=== PATIENT | female | born 1960 | race Caucasian/White ===

== ENCOUNTER → 2018-11-09 | Outpatient (CLI) | payer BC ==
[~2018-11-09] MED LIST: BARIUM SUSPENSION 2.1% (VANILLA SILQ) 450 ML PO ONE; CATHETER FLUSH 10 ML SYR IV PRN; IOHEXOL 350 MG/ML 100 ML (OMNIPAQUE 350) VIAL IV ONE; NS 100 ML (IVPB) BAG IV ONE; RECEIVED CONTRAST 20 ML VIAL IV SCH
[2018-11-09 16:17] LABS: BUN/CREATININE RATIO 20; CREATININE SERUM 0.85 MG/DL (0.60-1.30); GFR ESTIMATED > 60
--- NOTE | 2018-11-09 17:00 | Diagnostic Imaging Report ---
PROCEDURE: CT abdomen and pelvis with contrast. TECHNIQUE: Multiple contiguous axial images were obtained through the abdomen and pelvis after administration of intravenous contrast. INDICATION: Lower abdominal pain. COMPARISON: No prior studies are available for comparison. FINDINGS: Lung bases are clear. Liver and gallbladder are unremarkable. No biliary duct dilatation is seen. The pancreas and spleen are unremarkable. There is some mild enlargement to the adrenal glands bilaterally which may be secondary to adrenal hyperplasia. No discrete adrenal mass is identified. Kidneys are unremarkable. Aorta is non-aneurysmal. Small and large bowel loops are normal in caliber. Appendix is visualized and unremarkable. There is no ascites. No central retroperitoneal or mesenteric lymphadenopathy is seen. No definite inguinal or iliac lymphadenopathy is seen. The uterus and bladder are unremarkable. There is moderate stool throughout the colon, perhaps on the basis of constipation. IMPRESSION: Moderate stool in the colon. Study is otherwise unremarkable. No acute feature is detected. Dictated by: Dictated on workstation # [id number]
== END ==
LOC: RAD 15:41
PROVIDERS: ATTEND Emergency Medicine
DX: F22 Delusional disorders (principal); R10.30 Lower abdominal pain, unspecified
CPT/HCPCS: 36415; 74177; 82565; 84520

== ENCOUNTER 2019-11-15 16:50 | Emergency (ER) | payer BC ==
[~2019-11-15] VITALS: Ht 168 cm; Wt 82.8 kg
[2019-11-15 16:50] VITALS: BP 154/77
[2019-11-15] MEDS ORDERED: HYDR-3781 (17:06)
[2019-11-15] MEDS ORDERED: TOPI100T11 (17:06)
[2019-11-15] MEDS ORDERED: DEXT30TA12 (17:06)
[2019-11-15] MEDS ORDERED: LISI-552 (17:06)
[2019-11-15] MEDS ORDERED: ATOR20TA66 (17:06)
--- NOTE | 2019-11-15 17:09 | ED EENT ---
History of Present Illness General Chief Complaint: Ear Problems Stated Complaint: POSS EAR INFECTION Nursing Triage Note: COMPLAINS OF LEFT SIDED EAR PAIN ET STATES SOMETHING CAME OUT OF IT 4 DAYS AGO. ALSO COMPLAINS OF DIZZINESS. Source: patient Exam Limitations: no limitations History of Present Illness Date Seen by Provider: Nov 15, 2019 Time Seen by Provider: 17:00 Initial Comments The patient is a 59-year-old female who presents for evaluation of ear pain and sinus pressure over the last 4 days or so. She also states that something came out of her ear a few days ago and she brings it in a plastic bag. It appears to be a small string tied and are not with some yellow earwax attached. She admits to some intermittent dizziness as well. She is alert and oriented 4, calm, and appears to be in no distress at this time. She denies headache, neck pain or stiffness, chest pain or shortness of breath, abdominal or back pain, fevers or chills, nausea or vomiting, palpitations or syncope Timing/Duration: gradual Severity: mild Location: ear (R), ear (L) Prearrival Treatment: no prearrival treatment Associated Symptoms: sinus infection Allergies and Home Medications Allergies Coded Allergies: No Allergy Information Available (Unverified , 11/09/18) Patient Home Medication List Home Medication List Reviewed: Yes Review of Systems Review of Systems Constitutional: no symptoms reported Eyes: No Symptoms Reported Ears: Pain (mild bilateral ear pain, small foreign body from right ear) Nose: no symptoms reported, other (mild sinus pressure) Mouth: no symptoms reported Throat: no symptoms reported Respiratory: no symptoms reported Cardiovascular: no symptoms reported Gastrointestinal: no symptoms reported Musculoskeletal: no symptoms reported Skin: no symptoms reported Neurological: No Symptoms Reported Hematologic/Lymphatic: No Symptoms Reported Immunological/Allergic: no symptoms reported All Other Systems Reviewed Negative Unless Noted: Yes Past Cmndosk-Jotdew-Bwvfbd Hx Past Med/Social Hx: Reviewed Nursing Past Med/Soc Hx Patient Social History Recent Foreign Travel: No Contact w/Someone Who Travel: No Recent Infectious Disease Expo: No Physical Exam Vital Signs Vital Signs - First Documented 11/15/19 16:50 Temp 36.6 Height, Weight, BMI Height: '" Weight: lbs. oz. kg; 29.00 BMI Method: General Appearance: WD/WN Eyes: bilateral eye normal inspection, bilateral eye PERRL, bilateral eye EOMI Ears: bilateral ear auricle normal, bilateral ear canal normal, bilateral ear TM normal Nose: normal inspection Mouth/Throat: normal mouth inspection, pharynx normal, other (+maxillary sinus ttp) Neck: non-tender, full range of motion, supple, normal inspection Cardiovascular: regular rate, rhythm, no edema, no murmur Respiratory: chest non-tender, lungs clear, normal breath sounds, no respirator y distress Gastrointestinal: normal bowel sounds, non tender, soft Neurologic/Psychiatric: no motor/sensory deficits, alert, normal mood/affect, oriented x 3 Skin: normal color, warm/dry Progress/Results/Core Measures Results/Orders Vital Signs/I&O 11/15/19 16:50 Temp 36.6 B/P (MAP) Progress Progress Note : Progress Note @1710 - patient offered antibiotics for possible sinus infection and she would like to try them. Additionally she'll be given a prescription for meclizine for the intermittent dizziness. Advised the patient to follow up with her PCP in the next 1-2 days and to return to the emergency Department immediately for new or worsening symptoms. The patient expresses verbal understanding and agreement with the plan and is stable for discharge at this time. Departure Impression Primary Impression: Acute sinusitis Additional Impression: Acute pain of both ears Disposition: 01 HOME, SELF-CARE Condition: Stable Departure-Patient Inst. Decision time for Depature: 17:12 Referrals: FANNY LEYVA DO (PCP/Family) Primary Care Physician Patient Instructions: Dizziness, Nonvertigo, (DC), Sinus Headache (DC), Sinusitis, Adult (DC) Add. Discharge Instructions: Take the prescribed medication as directed, as needed. Return to the emergency department immediately for new or worsening symptoms. Follow-up with your doctor in the next 1-2 days. Scripts Meclizine HCl (Meclizine HCl) 25 Mg Tablet 25 MG PO Q6H for Dizziness for 10 Days, #20 TAB Prov: JOCELINE GHOSH DO 11/15/19 Doxycycline Hyclate (Doxycycline Hyclate) 100 Mg Tablet 100 MG PO BID for 7 Days, #14 TAB 0 Refills Prov: JOCELINE GHOSH DO 11/15/19 JOCELINE GHOSH DO Nov 15, 2019 17:09
[2019-11-15] MEDS ORDERED: DOXY100T2 PO (17:15)
[2019-11-15] MEDS ORDERED: MECL-149 PO (17:15)
--- OUTSIDE RECORDS SUMMARY | 2019-11-17 21:13 | XMS REPORT | Continuity of Care Document ---
Author Organization Unknown Address Unknown Phone Unavailable Allergies Active Description Code Type Severity Reaction Onset Reported/Identified Relationship to Patient Clinical Status Yes NO NAME AVAILABLE 65276 DRUG N/A N/A Yes MORPHINE 93596 DRUG INGREDI N/A Hives 11/21/2013 11/21/2013 Yes PENICILLINS 26 Drug Class N/A HivesROther 11/21/2013 11/21/2013 Yes CODEINE 53600 DRUG INGREDI N/A Other 04/28/2018 04/28/2018 Yes No Allergy Information Available F2929 26204 Drug Allergy Unknown N/A 019 Yes Penicillins [id number] Drug Aller gy Severe EDEMA 11/15/2019 Yes morphine [id number] Drug Allergy Unknown N/A 11/15/2019 Medications There is no data. Problems Date Dx Coded Attending Type Code Diagnosis Diagnosed By 07/08/2018 ROEL ROSE V A69.20 Lyme disease, unspecified 07/08/2018 ROEL ROSE V R20.0 Anesthesia of skin 07/08/2018 ROEL ROSE V R20.2 Paresthesia of skin 07/08/2018 ROEL ROSE V R41.3 Other amnesia 07/08/2018 ROEL ROSE F A69.20 Lyme disease, unspecified 07/08/2018 ROEL ROSE F R20.0 Anesthesia of skin 07/08/2018 ROEL ROSE F R20.2 Paresthesia of skin 07/08/2018 ROEL ROSE F R41.3 Other amnesia 11/24/2018 FANNY LEYVA DO Ot F22 DELUSIONAL DISORDERS 11/24/2018 FANNY LEYVA DO Ot R10.30 LOWER ABDOMINAL PAIN, UNSPECIFIED Procedures Code Description Performed By Per daniel On NEU5 EMG 07/07/2018 SYX539 AMB REFERRAL TO NEURO-PSYCH 07/08/2018 Results Test Result Range LYME DISEASE AB, IMMUNOBLOT, S - 8 13:15 IGG BAND(S) No bands detected kDa IGG IMMUNOBLOT Negative Negative IGM BAND(S) p41 kDa IGM IMMUNOBLOT Negative Negative INTERPRETATION SEE COMMENTS TULAREMIA AGGLUTININS - 04/28/18 13:15 TULAREMIA AGGLUTININS Negative 1864 Negative LYME DISEASE AB, IMMUNOBLOT, S - 8 14:13 IGG BAND(S) No bands detected kDa IGG IMMUNOBLOT Negative Negative IGM BAND(S) p41 kDa IGM IMMUNOBLOT Negative Negative INTERPRETATION SEE COMMENTS [id number] - 11/09/18 15:52 Serum or plasma urea nitrogen measurement (mass/volume ) 17 mg/dL 7-18 Serum or plasma creatinine measurement (mass/volume) 0.85 mg/dL 0.60-1.30 Serum or plasma urea nitrogen/creatinine mass ratio 20 NRG Serum or plasma creatinine measurement w ith calculation of estimated glomerular filtration rate > NRG Radiology Report from 792 on 07/08/2018 14:49:46 PROCEDURE: MRI BRAIN WO CONTRASTSTUDY DA TE: July 08, 2018CLINICAL INDICATION / HISTORY: Reported history of: " 58 y.o. female who had concerns including Memory Loss.". memory loss, numbness.TECHNIQUE: A routine MRI of the brain was performed.COMPARISON: There is no prior MR examination of the brain for comparison.FINDINGS:There are a few subtle areas of abnormal increased T2/FLAIR signal intensity identified throughout the deep white matter of the brain and brainstem suggestive of small vessel ischemic disease. There is no other evidence of abnormal increased or decreasedsignal intensity identified throughout the brain parenchyma. Specifically, there is no evidence of abnormal restricted diffusion identified on the diffusion weighted imaging to suggest an acute area of infarction.There is no mass-effect or shift of midline structures. There is no evidence of focal parenchymal mass identified on this noncontrast examination. The lack of intravenous contrast limits evaluation of the brain parenchyma.The ventricular system is normally outlined and the third and fourth ventricles are in a normal midline location.The visualized portions of the internal carotid and vertebrobasilar flow-voids are noted and appear patent.There is trace mucosal thickening noted within a few of the ethmoid air cells. The remainder of the visualized paranasal sinuses are normally aerated. 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 Visit Date/Time Discharge Status Pt. Type Provider Facility Loc./Unit Complaint [id number] 08/03/2018 09:46:57 8 23:59:59 CLS Outpatient DENG FISCHERVITHClaudia Whitt [place] [address] [id number] 07/08/2018 14:16:27 8 23:59:00 DIS Outpatient [facility] MRIKZ [id number] 07/07/2018 14:49:14 8 23:59:59 CLS Outpatient [place] [address] [id number] 07/07/2018 14:10:51 8 23:59:59 CLS Outpatient [place] [address] [id number] 07/07/2018 13:20:23 8 23:59:59 CLS Outpatient [place] [address] [id number] 04/28/2018 13:08:18 8 23:59:59 CLS Outpatient [place] [address] [id number] 04/28/2018 12:08:37 8 23:59:59 CLS Outpatient FISCHERMARIO [place] [address] [id number] 11/15/2019 16:52:00 020 17:19:00 DIS Emergency AUGIE CAR DO [facility] ER FS POSS EAR INFECTION [id number] 11/09/2018 15:41:00 019 23:59:59 CLS Outpatient FANNY LEYVA DO [facility] RAD LOWER ABD PAIN
== END 2019-11-15 17:19 | disposition home or self-care (01) ==
LOC: EDUNIT# 16:50 → ER FS 16:52
DX: J01.90 Acute sinusitis, unspecified (principal)
CPT/HCPCS: 99282

== ENCOUNTER → 2020-04-30 | Outpatient (CLI) | payer BC ==
[~2020-04-30] MED LIST changes: +ATOR20TA66; -BARIUM SUSPENSION 2.1% (VANILLA SILQ) 450 ML PO ONE; -CATHETER FLUSH 10 ML SYR IV PRN; +DEXT30TA12; +DOXY100T2 PO; +HYDR-3781; -IOHEXOL 350 MG/ML 100 ML (OMNIPAQUE 350) VIAL IV ONE; +LISI-552; +MECL-149 PO; -NS 100 ML (IVPB) BAG IV ONE; -RECEIVED CONTRAST 20 ML VIAL IV SCH; +TOPI100T11
--- NOTE | 2020-04-30 10:17 | Diagnostic Imaging Report ---
PROCEDURE: CT sinuses without contrast TECHNIQUE: Multiple contiguous axial images were obtained through the sinuses without the use of intravenous contrast. Coronal and sagittal reformations were then performed. Auto Exposure Controls were utilized during the CT exam to meet ALARA standards for radiation dose reduction. INDICATION: Nasal pain and nasal polyps. The frontal sinus is clear. Ethmoid air cells and sphenoid sinus are clear. Bilateral maxillary sinuses are clear. No mucosal thickening or air-fluid levels are detected. Left mastoid is well aerated. There is some fluid in right mastoid air cells. There is some nasal septal deviation to the right. Ostiomeatal complexes are patent bilaterally. Nasal cavity is unremarkable for mass or polyps. IMPRESSION: 1. Right mastoid effusion. 2. No evidence of paranasal sinus disease or mass. Dictated by: Dictated on workstation # [id number]
== END ==
LOC: RAD FS 08:56
PROVIDERS: ATTEND Otolaryngology Otolaryngology/Facial Plastic Surgery
DX: H74.8X1 Other specified disorders of right middle ear and mastoid (principal); J34.89 Other specified disorders of nose and nasal sinuses
CPT/HCPCS: 70486

== ENCOUNTER → 2020-06-07 | Outpatient (CLI) | payer BC ==
--- NOTE | 2020-06-07 17:03 | Diagnostic Imaging Report ---
INDICATION: Right hand pain. COMPARISON: None available. TECHNIQUE: Three views of the right hand were obtained. FINDINGS: Normal osseous mineralization. No uniform joint space narrowing or marginal erosions that would suggest inflammatory arthritis. No abnormal osseous excrescence. Moderate hypertrophic degenerative arthritis at the thumb CMC. No abnormal soft tissue mineralizations. No soft tissue tophi or para-articular erosions that would suggest gout. IMPRESSION: 1. No radiographic abnormality account for patient's reported soft tissue masses in the hand. 2. Moderate degenerative arthritis at the thumb base. Dictated by: Dictated on workstation # [id number]
== END ==
LOC: RAD FS 16:28
PROVIDERS: ATTEND Nurse Practitioner Family
DX: M19.041 Primary osteoarthritis, right hand (principal); R22.30 Localized swelling, mass and lump, unspecified upper limb
CPT/HCPCS: 73130

== ENCOUNTER 2020-11-14 09:32 | Emergency (ER) | payer BC ==
[~2020-11-14] VITALS: Ht 170.1 cm; Wt 83.6 kg
[~2020-11-14 09:32] MED LIST changes: -LISI-552; +LISI20TA26
--- NOTE | 2020-11-14 09:40 | ED Integumentary General ---
General Stated Complaint: FINGER INFECTION History of Present Illness Date Seen by Provider: Nov 14, 2020 Time Seen by Provider: 09:40 Initial Comments 60-year-old female presents with lesion/erythema on the knuckle of her third digit on her left hand. Patient reports that this lesion has come and gone for at least 2 years. 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 There is no significant acute change. Patient denies any other symptoms Allergies and Home Medications Allergies Coded Allergies: Penicillins (Verified Allergy, Severe, EDEMA, 11/15/19) morphine (Verified Allergy, Unknown, 11/15/19) Home Medications Doxycycline Hyclate 100 Mg Tablet, 100 MG PO BID Prescribed by: JOCELINE GHOSH on 11/15/191714 Meclizine HCl 25 Mg Tablet, 25 MG PO Q6H Prescribed by: JOCELINE GHOSH on 11/15/191714 Patient Home Medication List Home Medication List Reviewed: Yes Review of Systems Review of Systems Constitutional: No chills, No fever Respiratory: No cough, No short of breath Cardiovascular: No chest pain Gastrointestinal: No nausea, No vomiting Genitourinary: no symptoms reported Musculoskeletal: see HPI Skin: see HPI Past Qfgupsw-Aanckq-Edfahk Hx Past Med/Social Hx: Reviewed Nursing Past Med/Soc Hx Patient Social History Recent Hopitalizations: No Seasonal Allergies Seasonal Allergies: No Past Medical History Surgeries: Yes Orthopedic Respiratory: No Cardiac: Yes Hypertension Neurological: Yes (LYMES DISEASE) Genitourinary: No Gastrointestinal: No Musculoskeletal: No Endocrine: No HEENT: No Cancer: No Integumentary: No Physical Exam Vital Signs Capillary Refill : General Appearance: no apparent distress Neck: supple Cardiovascular: normal peripheral pulses, regular rate, rhythm Respiratory: lungs clear Extremities: normal range of motion, non-tender Skin Problem Location: upper extremities (Third digit left hand) Skin Problem Character: other (Patient with a lesion with some dried skin and erythema across the knuckle.) Progress/Results/Core Measures Progress Progress Note : Progress Note Discussed with patient that she will need to follow-up with either a general surgeon or child nutrition assistant for further evaluation of her lesion. That with her history of squamous and basal cell cancer on her arms that I am unwilling to do any lesion removal with the inability to have proper biopsy. That has been going on for 2 years and it needs to have follow-up with her primary to help arrange further evaluation of her lesion. Due to some questionable overlying erythema and possible early infection due to what appears to be her picking at it I will start her on Keflex. Patient stable and will be discharged home Departure Impression Primary Impression: Skin lesion of left upper extremity Disposition: HOME, SELF-CARE Condition: Stable Departure-Patient Inst. Referrals: FANNY LEYVA DO (PCP/Family) Primary Care Physician Patient Instructions: Cellulitis (Skin Infection), Adult (DC) Add. Discharge Instructions: Please follow-up with your primary care provider to arrange for either a dermatology or general surgery consult for lesion removal and biopsy. Scripts Cephalexin (Cephalexin) 500 Mg Tablet 500 MG PO QID, #20 TAB 0 Refills Prov: LEONILA JUSTIN DO 11/14/20 LEONILA JUSTIN DO Nov 14, 2020 09:40
[2020-11-14] MEDS ORDERED: CEPH500T PO (10:00)
[2020-11-14 10:33] VITALS: BP 132/68
== END 2020-11-14 10:33 | disposition home or self-care (01) ==
LOC: EDUNIT# 09:32 → ER FS 09:35
DX: D23.60 Other benign neoplasm of skin of unspecified upper limb, including shoulder (principal); Z88.0 Allergy status to penicillin; Z88.5 Allergy status to narcotic agent

== ENCOUNTER → 2021-04-08 | Outpatient (CLI) | payer BC ==
[~2021-04-08] MED LIST changes: +CEPH500T PO
--- NOTE | 2021-04-08 16:27 | Diagnostic Imaging Report ---
Indication: Cough and increasing shortness breath for 2 weeks PA and lateral chest Heart size and pulmonary vascularity are normal. Lungs are clear. There are no effusions or pneumothoraces. IMPRESSION: Negative chest Dictated by: Dictated on workstation # [id number]
== END ==
LOC: RAD FS 16:05
PROVIDERS: ATTEND Nurse Practitioner Family
DX: R05 Cough (principal); R06.02 Shortness of breath; R53.83 Other fatigue
CPT/HCPCS: 71046

== ENCOUNTER 2021-04-17 17:21 | Emergency (ER) | payer OTHER, BC ==
[~2021-04-17] VITALS: Ht 170.2 cm; Wt 81.6 kg
[2021-04-17 17:31] VITALS: BP 115/99
--- NOTE | 2021-04-17 18:26 | ED Back Pain ---
General Chief Complaint: Back Problems Stated Complaint: FALL; BACK/RT HAND/RT KNEE INJ Nursing Triage Note: PT ARRIVED BY PRIVATE VEHICLE WITH CHIEF COMPLAINT OF FALL. PT WAS ALERT, ORIETNED X 4 AND AMBULATORY. PT FELL ON THURSDAY AT 1500. PT IS WORRIED, BECAUSE SHE HAS A STIFF BACK AND HURTS MORE ON RIGHT SIDE. PT ALSO COMPLAINS OF RIGHT THUMB, WRIST AND RIGHT KNEE PAIN. PT HAD SURGERY FOR SCOLIOSIS IN AUGUST. PT HAS HISTORY OF SCOLIOSISIS, GRAPHS ON HAND, ANKLE PLATES AND SCREWS, SKIN CANCER, HYPERTENSION. PT TAKES LISINOPRIL, TOPAMAX, ADDERALL, HYDROCODONE, ALEVE. PT DENIES SMOKING, ALCOHOL OR DRUG USE. PT GOT COVID SHOTS IN DECEMBER - . PT IS ALLERGIC TO PENICILLIN - HIVES, MORPHINE, AND CODIENE. REPORT WAS GIVEN TO PROVIDER AFTER VITALS WERE DONE. Source of Information: Patient Exam Limitations: No Limitations History of Present Illness Date Seen by Provider: Apr 17, 2021 Time Seen by Provider: 17:30 Initial Comments Patient is a 61-year-old female with history of scoliosis presents with accidental fall from standing 4 days ago. Patient states she slipped on a wet store floor fell backwards landing on her buttocks with an extended right wrist. She reports persistent low back pain, right wrist pain and right knee pain. She takes daily hydrocodone for chronic back pain but has not required addit ional pain medication. She did not oit her head. She denies loss of consciousness neck pain upper back pain or radicular pain symptoms. No other symptoms or complaints. Location: Lumbar Spine, Other Timing/Duration: Constant Severity: Moderate Pain/Injury Location: Other Radiation: Other Method of Injury: Other Modifying Factors: Improves With Other Associated Symptoms: other Allergies and Home Medications Allergies Coded Allergies: Penicillins (Verified Allergy, Severe, EDEMA, 11/15/19) morphine (Verified Allergy, Unknown, 11/15/19) Home Medications Cephalexin 500 Mg Tablet, 500 MG PO QID Prescribed by: LEONILA JUSTIN on 11/14/20 1000 Doxycycline Hyclate 100 Mg Tablet, 100 MG PO BID Prescribed by: JOCELINE GHOSH on 11/15/191714 Meclizine HCl 25 Mg Tablet, 25 MG PO Q6H Prescribed by: JOCELINE GHOSH on 11/15/191714 Patient Home Medication List Home Medication List Reviewed: Yes Review of Systems Constitutional: see HPI EENTM: see HPI Respiratory: see HPI Cardiovascular: see HPI Gastrointestinal: see HPI Genitourinary: see HPI Musculoskeletal: see HPI Skin: see HPI Psychiatric/Neurological: See HPI All Other Systems Reviewed Negative Unless Noted: Yes Past Hlvuwuu-Uximkx-Vhkekz Hx Patient Social History Tobacco Use?: Yes Smoking Status: Never a Smoker Substance use?: No Alcohol Use?: No Pt feels they are or have been: No Immunizations Up To Date COVID19 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 Seasonal Allergies Seasonal Allergies: No Past Medical History Surgeries: Yes (Back Surgery (scoliosis)) Orthopedic Respiratory: No Cardiac: Yes Hypertension Neurological: Yes (Lymes Dz + 2 other Tick Borne) Genitourinary: No Gastrointestinal: No Musculoskeletal: No Endocrine: No HEENT: No Cancer: Yes (squamous and basal cell) Skin Psychosocial: No Integumentary: Yes (open sore L third knuckle 2 yrs) Blood Disorders: No Physical Exam Vital Signs Vital Signs - First Documented 04/17/21 17:31 Temp 36.6 Pulse 82 Resp 18 B/P (MAP) 115/99 (104) Pulse Ox 99 O2 Delivery Room Air Capillary Refill : Less Than 3 Seconds Height, Weight, BMI Height: '" Weight: lbs. oz. kg; 28.00 BMI Method: General Appearance: WD/WN, Anxious HEENT: PERRL/EOMI Neck: Normal Inspection, Non Tender, Supple Back: No CVA Tenderness, No Vertebral Tenderness, Decreased Range of Motion, Other (Diffuse low back pain/tenderness.) Extremity: Other (Tenderness and mild swelling, right thumb pad no deformity or pain over anatomical snuffbox. Right knee, minimal swelling, no deformity. 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 Norm as Tested Skin: Normal Color Lymphatic: No Adenopathy Progress/Results/Core Measures Results/Orders My Orders Orders - DALE WEISS DO Lumbar Spine 2 Or 3 View (04/17/21 18:06) Wrist 3 View Right (04/17/21 18:06) Knee 3 View Right (04/17/21 18:06) Vital Signs/I&O 04/17/21 17:31 Temp 36.6 Pulse 82 Resp 18 B/P (MAP) 115/99 (104) Pulse Ox 99 O2 Delivery Room Air Blood Pressure Mean: 104 Departure Communication (Admissions) Lumbar series x-ray: No obvious displaced fracture or hardware Right wrist x-ray: No obvious displaced fracture Right knee x-ray: No obvious displaced fracture Patient with accidental fall without obvious injury on plain film imaging. Patient has had a quick pain medication at home and is not requesting any new medications. She is instructed to follow-up with PCP and spine spine doctor for further concerns. Return precautions reviewed. Patient verbalizes understanding agreement discharge instructions prior to departure. Impression Primary Impression: Acute lumbar myofascial strain Additional Impressions: Right wrist sprain Right knee sprain Disposition: HOME, SELF-CARE Condition: Stable Departure-Patient Inst. Decision time for Depature: 18:32 Referrals: FANNY LEYVA DO (PCP/Family) Primary Care Physician Patient Instructions: Knee Sprain ED, Wrist Sprain (DC), Back Muscle Strain (DC) Add. Discharge Instructions: You were evaluated in the emergency department for fall with low back right knee and right wrist injury. Plain films were performed did not show evidence of obvious fracture. Please continue home pain medications apply ice and take ibuprofen as needed for additional relief. Follow-up with your PCP and/or back surgeon if symptoms persist. Return to the ED if new or worsening symptoms. All discharge instructions reviewed with patient and/or family. Voiced understanding. DALE WEISS DO Apr 17, 2021 18:25
--- NOTE | 2021-04-17 18:34 | Diagnostic Imaging Report ---
INDICATION: Right wrist pain. COMPARISON: None available. TECHNIQUE: Three views of the right wrist were obtained. FINDINGS: No acute fracture is present. Severe degenerative changes are present in the thumb CMC with remodeling of the trapezium and subluxation of the thumb metacarpal. No soft tissue swelling is appreciated. IMPRESSION: 1. No acute osseous abnormality about the right wrist. 2. 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 Dictated by: Dictated on workstation # [id number]
--- NOTE | 2021-04-17 18:35 | Diagnostic Imaging Report ---
INDICATION: Right knee pain after fall. COMPARISON: None available. TECHNIQUE: Three views of the right knee. FINDINGS: No knee joint effusion. No fracture. Joint spaces are fairly well preserved. No concerning focal osseous lesion or mineralized loose body. IMPRESSION: No acute osseous abnormality in the right knee. Dictated by: Dictated on workstation # [id number]
--- NOTE | 2021-04-17 18:37 | Diagnostic Imaging Report ---
INDICATION: Back pain after fall. COMPARISON: None available. TECHNIQUE: Three views of the lumbosacral spine. FINDINGS: There are postoperative changes from lateral interbody fusion and instrumented posterior fusion at L3-L4 and L4-L5. There is no hardware complication. No osseous incorporation of the interbody cages at L3-L4 and L4-L5. Severe degenerative disc disease at L2-L3 and L1-L2. No appreciable osseous fracture. No feature of sacral ala insufficiency fracture. Mild degenerative arthritis of the SI joints. IMPRESSION: 1. Lateral interbody fusion along with instrumented posterior fusion in the lumbar spine has no feature of radiographic complication of the hardware. 2. No acute fracture by radiography. Dictated by: Dictated on workstation # [id number]
--- OUTSIDE RECORDS SUMMARY | 2021-04-18 11:18 | XMS REPORT | Clinical Summary ---
Author Author [facility] Organization [facility] Address Unknown Phone Unavailable Care Team Providers Care Director Data Management Name Role Phone Clovis Schrader PCP Ann Marie Morin MD Unavailable Franco Hobbs MD Unavailable Allergies Comments Active Allergy Reactions Severity Noted Date Altered mental status Codeine Other (See 04/28/2018 Comments) Morphine Hives 11/21/2013 Throat swelling Penicillins Hives, Other 11/21/2013 (See Comments) Medications End Date Status Medication Sig Dispensed Refills Start Date Active amLODIPine (NORVASC) 10 10 mg daily. 0 MG tablet 8 Active amphetamine-dextroampheta 30 mg 2 (two) 0 03/08 mine (ADDERALL) 30 MG times daily. 8 tablet Active diclofenac (VOLTAREN) 75 75 mg as 1 04/14 MG EC tablet needed. 8 Active HYDROcodone-acetaminophen daily. 0 03/08 (NORCO) 5-325 MG tablet 8 Active lisinopril 20 mg daily. 1 (PRINIVIL,ZESTRIL) 20 MG 8 tablet Active topiramate (TOPAMAX) 100 100 mg daily. 0 03/30 MG tablet 8 Active zolpidem (AMBIEN) 10 MG 10 mg daily. 0 tablet 8 Active vitamin D, 0 ergocalciferol, 25330 8 units CAPS Active VENTOLIN HFA 108 (90 0 Base) MCG/ACT inhaler 8 Active Problems Problem Noted Date Lyme disease 07/07/2018 Numbness and tingling 07/07/2018 Memory difficulties 05/13/2018 Immunizations Name Administration Dates Next Due INFLUENZA IIV4 PF 06/29/2018 (FLULAVAL,FLUZONE,FLUARIX ,AFLURIA QUAD) Tdap 06/29/2018 Social History Date Tobacco Use Types Packs/Day Years Used Current Every Day Smoker Cigarettes Smokeless Tobacco: Never Used Sex Assigned at Date Recorded Not on file Last Filed Vital Signs Reading Time Taken Comments Vital Sign 140/72 08/03/2018 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 Blood Pressure 72 08/03/2018 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 Pulse 36.8 C (98.3 F) 08/03/2018 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 Temperature 18 08/03/2018 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 Respiratory Rate - - Oxygen Saturation - - Inhaled Oxygen Concentration 79.6 kg (175 lb 8 oz) 08/03/2018 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 Weight - - Height - - Body Mass Index Plan of Treatment Health Maintenance Due Date Last Done Comments Hepatitis C Screening 01/13/1978 MMR Vaccines-Adult 01/13/1979 Cervical Cancer Screening 01/13/1981 Breast Cancer 01/13/2010 Screening-Mammogram Colon Cancer Screening 01/13/2010 Zoster Vaccine (1 of 2) 01/13/2010 Influenza Vaccine (#1) 2021 06/29/2018 Pneumo-Vaccine: 65+Yrs (1 01/13/2025 of 1 - PPSV23) DTaP,Tdap,and Td Vaccines 06/29/2028 06/29/2018 (2 - Td or Tdap) COVID-19 Vaccine Completed 01/04/2021, 12/08/2020 HIB Vaccines Aged Out No longer eligible based on patient's age to complete this topic IPV Vaccines Aged Out No longer eligible based on patient's age to complete this topic Meningococcal Vaccine Aged Out No longer eligib le based on patient's age to complete this topic Pneumo-Vaccine: Peds (0-5 Aged Out No longer el igible based on patient's age to Yrs) & At-Risk Patients complete this topic (6-64 Yrs) Rotavirus Vaccines Aged Out No longer eligible based on patient's age to complete this topic Results Not on filefrom Last 3 Months Insurance Type Payer Benefit Subscriber ID Effective Phone Address Plan / Dates Group HMO BCBS BCBS [id number] 2018- [phone] [address] [employer] Present [place] [facility] [id number] Advance Directives For more information, please contact: [phone] Patient Pelts 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
--- OUTSIDE RECORDS SUMMARY | 2021-04-18 11:18 | XMS REPORT | Clinical Summary ---
Author Author [facility] Organization [facility] Address Unknown Phone Unavailable Care Team Providers Care Social And Political Studies Professor Name Role Phone Betty Joshi MD Unavailable Jocelyn Desouza RN Unavailable Unavailable Brielle Guaman APRN Unavailable Unavailable Source Comments Some departments are not documenting in the electronic medical record. If you d o not see the information that you expected, contact Release of Information in [facility] [employer] Information Management department at [phone] for further assistan ce in locating additional records.[facility] Allergies Comments Active Allergy Reactions Severity Noted Date Altered mental status Codeine SEE COMMENTS Low 04/28/2018 Morphine HIVES 11/21/2013 Throat swelling Penicillins HIVES, SEE Medium 11/21/2013 COMMENTS Medications End Date Status Medication Sig Dispensed Refills Start Date Active lisinopril (PRINIVIL; Take 20 mg by 0 ZESTRIL) 20 mg tablet mouth daily. Active topiramate (TOPAMAX) 100 Take 100 mg 0 mg tablet by mouth daily. Active amLODIPine (NORVASC) 10 10 mg. 0 mg tablet 8 Active dextroamphetamine-ampheta Take 30 mg by 0 03/08 mine(+) (ADDERALL) 30 mg mouth daily 8 tablet Active HYDROcodone/acetaminophen TK 1 T PO BID 0 05/09 (NORCO) 5/325 mg tablet 8 Active risperiDONE (RISPERDAL) 1 Take 0.25 mg 0 mg tablet by mouth at bedtime daily. Active atorvastatin (LIPITOR) 20 Take 20 mg by 2 01/05 mg tablet mouth at 9 bedtime daily. Active escitalopram oxalate Take one 30 tablet 0 03/14 (LEXAPRO) 5 mg tablet tablet by 0 mouth daily. Active Problems Problem Noted Date Mixed obsessional thoughts and acts 03/14/2020 Overview: Formatting of this note might be differ ent from the original. 03/14/2020 -Current Symptoms: Cleans bathroom ever y day for 1.5 hours total w/ peroxide, cleans towels and sheets, and inability to shower unless she cleans the bathroom -YBOC Calculator 24 (Severe) on 03/14/20 Plan: -Start Lexapro 5mg PO Daily -Recommend Psychotherapy CBT for OCD by visiting [email or web address] Carpal tunnel syndrome of right wrist 07/14/2019 Overview: Formatting of this note might be differ ent from the original. severe Numbness in both hands 03/29/2019 Numbness of right foot 03/29/2019 Intermittent memory loss 03/29/2019 History of vulvar dysplasia 02/01/2019 History of abnormal cervical Pap smear 02/01/2019 Neuropathy 12/20/2018 Last Assessment & Plan: Formatting of this note might be differ ent from the original. -Symptoms of neuropathy in the hands an d lower shins but not the feet. -Lab work in care everywhere shows equi vocal IgM to Borrelia, with negative IgG. Confirmatory Western blot testing is negative for Borrelia infection indicating the patient does not have Ly me disease Previously followed with a neurologist at [facility], but had appointment canceled due to snow MRI in care everywhere with no acute fi ndings but does show chronic microvascular changes which were review ed with patient today She would like referral to neurology he re, will place order Check hemoglobin A1c, B12, TSH, CMP Delusions of parasitosis 07/01/2018 Overview: Formatting of this note might be differ ent from the original. 03/14/2020 -Symptoms present since 05/2017, felt l christopher she had lice in hair, feels like bug are crawling under her skin. -Current Symptoms: Currently endorses a feeling of bugs crawling under skin and believes fungal infection is o n skin and Morgellons in the skin with black and white fibers. -Referrals to Derm, Neurology, and Infe ctious Disease. Previously seen by [facility]. -Medication Trials: Risperdal 0.25mg PO QHS Plan: -Start Lexapro 5mg PO Daily L ast Assessment & Plan: Formatting of this note might be differ ent from the original. 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 03/14/2020 -Current symptoms: SIGECAPS (02/13) -Denies SI/HI and AVH -Previous Trials: Cymbalta and Celexa PHQ-9 No data recorded Plan: -Start Lexapro 5mg PO Daily -Recommend Psychotherapy CBT for Ryan hart by visiting [email or web address] L ast Assessment & Plan: Formatting of this note might be differ ent from the original. -refer to psych Preventative health care 06/29/2018 Last Assessment & Plan: Formatting of this note might be differ ent from the original. -Age appropriate anticipatory guidance given -Vaccinations: -Td/Tdap vaccine: Done June 2018 -Flu vaccine: Done June 2018 -Pneumococcal vaccine: PPSV 23 due (fatemeh tang), will give today -Shingles vaccine: patient given info o n Shingrix -Colon Cancer screening: due, discussed screening options, patient would like to get Cologuard testing. Discuss ed co-pay and that this may be very expensive and her insurance. The patie nt indicates that she has met her deductible this year. I informed her t hat she is unable to afford this test, she should call us so we can plac e order for colonoscopy. -Breast cancer screening: due, mammo or dered, patient given information on scheduling and reminded to schedule -Cervical Cancer screening: will defer to production welder w history of vulvar cancer -Lung Cancer screening: not yet indicat ed based on pack year history -Osteoporosis: due at 65y -BMI: Discussed patient's BMI with her on 06/29/18. The body mass index is 28.51 kg/m. and falls within the [place] of Overweight (25 to <30); BMI plan is in progress. -Depression: PHQ2 screening done , see separate problem -Tobacco/Alcohol: current every day smo ker, see separate problem. -HTN/HLD: H/o HTN, see separate problem . Order FLP -DM: Order HA1C -Hepatitis: due, screen for HCV -HIV: I verbally consented the patient for HIV screening today and discussed with the patient the indicati ons for and implications of screening. The patient consent: provide d verbal consent for testing today. Attention deficit hyperactivity disorder (ADHD), comb ined type 06/29/2018 Overview: Formatting of this note might be differ ent from the original. 03/14/2020 -Symptoms present since 35 -Current Symptoms: Inattention, and Hy peractivity -Denies palpitations, c/p, diaphoresis, wt loss, or headaches Plan: -Continue Adderall 30mg PO Daily Last Assessment & Plan: Formatting of this note might be differ ent from the original. -on Adderall 30mg BID, prescribed by pr nancy in [facility] -recommended to patient that she hold t his medication as it can cause sensation of formication, she states sh e will consider this Chronic midline low back pain without sciatica 06/29 Last Assessment & Plan: Formatting of this note might be differ ent from the original. -after back surgery in 2014 -takes hydrocodone/APAP 5/325 occasiona lly, prescribed by provider in [place] Tobacco use disorder, moderate, in sustained remissio n, on maintenance 06/29/2018 therapy, dependence Overview: Formatting of this note might be differ ent from the original. 03/14/2020 -Current Use: Vape 2.5mg of Nicotine da megan -Previous smoker 1/2ppd for 6 years oc t at age 22 Plan: -Counseled on risks of continued use an d benefits of cessation. L ast Assessment & Plan: Formatting of this note might be differ ent from the original. Previous frequent smoker, now occasiona l cigarettes Does vape every day Encouraged total smoking cessation We will give PPSV 23 today Total time spent: 3 minutes Leg wound, left, initial encounter 06/29/2018 Last Assessment & Plan: Formatting of this note might be differ ent from the original. -non-healing wound on posterior-lateral side of left knee -per patient, was a tick bite that did not heal -she has been putting steroid cream on it twice daily due to "itching" -does not appear to be infected, suspec t it is not healing due to the steroid cream -advised patient to not put any steroid creams on open wound -recommended OTC topical antibacterial twice daily and given instructions on wound management -patient given instructions on when to seek care for concern for cellulitis or spread to joint ELVIRA III (vulvar intraepithelial neoplasia III) 11/21 Last Assessment & Plan: Formatting of this note might be differ ent from the original. -history of vulvar cancer, s/p wide loc al excision on 01/17/14 -lost to follow-up with production welder onc in 2013 , was supposed to return in 6m -re-order referral to production welder onc for surve illance HTN (hypertension) 11/21/2013 Last Assessment & Plan: Formatting of this note is different fr om the original. BP Readings from Last 5 Encounters: 12/20/18 128/78 06/29/18 132/75 03/06/14 154/87 02/03/14 130/80 01/17/14 (!) 141/71 -BP acceptable on medication -continue amlodipine and lisinopril, do es not need refills at this time -re-order lipid profile and HA1C Hyperlipidemia 11/21/2013 Last Assessment & Plan: Formatting of this note might be differ ent from the original. -history of HLD, not currently on medic ation -re-order fasting lipid panel Immunizations Name Administration Dates Next Due Flu Vaccine =>3 YO 06/29/2018 (Historical) Flu Vaccine =>6 Months 06/29/2018 Quadrivalent PF Pneumococcal Vaccine 12/20/2018 (23-Stephanie Adult) Tdap Vaccine 06/29/2018 Surgical History Surgery Date Site/Laterality Comments BACK SURGERY 09/07/2014 - 09/06/2015 ANKLE FRACTURE TX Right 3 plates 9 screws p laced and then removed HX WISDOM TEETH EXTRACTION BONE GRAFT Left Hand Medical History Medical History Date Comments Basal cell carcinoma 2002,2014 left forearm and left post leg Hypertension Hyperlipemia Nicotine use disorder 06/29/2018 03/12/2020 -Lisa nt Use: Plan: -Counseled on risks of continued use and benefits of cessat ion. Family History Medical History Relation Name Comments Diabetes Father Stroke Father Diabetes Maternal Aunt Stroke Maternal Grandfather Basal Cell Carcinoma Mother Relation Name Status Comments Father Other Maternal Aunt Other Maternal Grandfather Other Mother Other Social History Date Tobacco Use Types Packs/Day Years Used Former Smoker Cigarettes 0 10 Smokeless Tobacco: Never Used Tobacco Cessation: Ready to Quit: No; Co unseling Given: Yes Comments: smokes sometimes, vapes regularly Comments Alcohol Use Standard Drinks/Week No 0 (1 standard drink = 0.6 o z pure alcohol) Sex Assigned at Date Recorded Not on file Last Filed Vital Signs Reading Time Taken Comments Vital Sign 157/93 06/11/2020 10:34 AM CDT Blood Pressure 80 06/11/2020 10:34 AM CDT Pulse 37 C (98.6 F) 06/11/2020 10:34 AM CDT Temperature 14 07/14/2019 10: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 Respiratory Rate 100% 03/06/2014 11:48 AM CDT Oxygen Saturation - - Inhaled Oxygen Concentration 83.5 kg (184 lb) 06/11/2020 10:34 AM CDT Weight 170.2 cm (5' 7") 06/11/2020 10:34 AM CDT Height 28.82 06/11/2020 10:34 AM CDT Body Mass Index Plan of Treatment Health Maintenance Due Date Last Done Comments HIV SCREENING 01/13/1975 HEPATITIS C SCREENING 01/13/1978 COLORECTAL CANCER 01/13/2010 SCREENING SHINGLES RECOMBINANT 01/13/2010 VACCINE (1 of 2) BREAST CANCER SCREENING 08/07/2017 08/07/2016 (Previously completed) PHYSICAL (COMPREHENSIVE) 06/29/2019 06/29/2018 EXAM INFLUENZA VACCINE 06/07/2021 06/29/2018, 06/29/2018 CERVICAL CANCER SCREENING 02/01/2022 02/01/2019 DTAP/TDAP VACCINES (2 - 06/29/2028 06/29/2018 Td) Results Not on filefrom Last 3 Months Insurance Type Payer Benefit Subscriber ID Effective Phone Address Plan / Dates Group [facility] [id number] 2017-P [employer] [phone] Advance Directives Patient Social Psychologist Explanation Type Date Recorded Advance Directive/DPOA
== END 2021-04-17 18:38 | disposition home or self-care (01) ==
LOC: EDUNIT# 17:21 → ER FS 17:25
DX: S39.012A Strain of muscle, fascia and tendon of lower back, initial encounter (principal); S63.501A Unspecified sprain of right wrist, initial encounter; S83.91XA Sprain of unspecified site of right knee, initial encounter; M79.644 Pain in right finger(s); I10 Essential (primary) hypertension; Z98.890 Other specified postprocedural states; W01.0XXA Fall on same level from slipping, tripping and stumbling without subsequent striking against object, initial encounter
CPT/HCPCS: 72100; 73110; 73562